=== PATIENT | female | born 1935 | race Caucasian/White ===

== ENCOUNTER 2016-05-19 10:57 | Emergency (ER) | payer MEDICARE ==
[~2016-05-19] VITALS: Ht 152.4 cm; Wt 61.4 kg
[~2016-05-19 10:57] MED LIST: ACTOS PLUS MET PO; ASPI81TA45 PO; CELE100C PO; FERR324T4 PO; ISOS40TA4 SL; LEVO50TA4 PO; LORT5TAB PO; LOSA25 PO; MAGN400T PO; METO25 PO; SIMV40 PO
[2016-05-19 11:02] VITALS: BP 137/75; PULSE 72; RESP 20; TEMP 97.7; O2SAT 95
[2016-05-19 12:29] LABS: AUTOMATED NEUTROPHIL # 3.8 TH/MM3 (1.8-7.7); BASOPHIL % 0.9 % (0.0-2.0); EOSINOPHIL # 0.1 TH/MM3 (0-0.4); HEMATOCRIT 34.9 % (35.0-46.0); HEMO FLAGS DIFF FINAL; LYMPH % 14.8 % (9.0-44.0); LYMPHOCYTE # 0.8 TH/MM3 (1.0-4.8); MEAN CELL VOLUME 94.3 FL (80.0-100.0); MEAN CORPUSCULAR HEMOGLOBIN 30.9 PG (27.0-34.0); MEAN CORPUSCULAR HGB CONC 32.7 % (32.0-36.0); MONO % 10.2 % (0.0-8.0); NEUT % 73.1 % (16.0-70.0); PLATELET COUNT 208 TH/MM3 (150-450); RED CELL DISTRIBUTION WIDTH 14.5 % (11.6-17.2); WHITE BLOOD COUNT 5.2 TH/MM3 (4.0-11.0)
[2016-05-19 12:35] LABS: BLOOD, URINE NEG (NEG); COMMENT (UR) CULTURE INDICATED; CULTURE IF INDICATED CULTURE INDICATED; GLUCOSE,URINE NEG (NEG); KETONE, URINE NEG (NEG); SQUAMOUS EPITHELIAL CELL URINE 2 /hpf (0-5); URINE COLOR YELLOW (YELLW/STRAW)
[2016-05-19 12:36] LABS: NITRITE,URINE POS (NEG)
[2016-05-19 12:48] LABS: ALT (GPT) 61 U/L (10-53); ANION GAP 9 MEQ/L (5-15); AST (GOT) 43 U/L (15-37); BLOOD UREA NITROGEN 17 MG/DL (7-18); CHLORIDE 106 MEQ/L (98-107); GLOMERULAR FILTRATION RATE 48 ML/MIN (>89); POTASSIUM 4.3 MEQ/L (3.5-5.1); SODIUM (NA) 138 MEQ/L (136-145)
[2016-05-19 12:50] LABS: ALKALINE PHOSPHATASE 98 U/L (45-117); TOTAL BILIRUBIN ADULT 0.4 MG/DL (0.2-1.0)
[2016-05-19] MEDS ORDERED: METO25TA3 PO ×2 (13:42→13:49)
[2016-05-19] MEDS ORDERED: MACR100C2 PO (13:42)
--- NOTE | 2016-05-19 13:43 | PD ---
HPI Chief Complaint: Complaint Time Seen by Provider: 13:42 Travel History International Travel<30 days: No Contact w/Intl Traveler<30days: No Traveled to known affect area: No History of Present Illness HPI 80-year-old female with a history of hypertension, GERD and recurrent urinary tract infections presents to the emergency department for evaluation of possible urinary tract infection. The patient states that for the past 5 days she's had burning with urination, urinary frequency and suprapubic pressure. States that she gets frequent urinary tract infection secondary to bladder prolapse and that these symptoms are typical of her urinary tract infections. States that she finished a 5 day course of Macrobid 6 days ago, had recently been on Cipro but was told by her doctor that her UTI was resistant to Cipro. She denies any fever, chills, nausea, vomiting, chest pain, shortness of breath , abdominal pain. The patient is here on vacation from [place] and returns home in 1 week. She is also requesting a refill of her metoprolol until she can get home to see her doctor. No other complaints. PFSH Past Medical History Bipolar Disorder: Yes (CERVICAL CANCER) Chest Pain: Yes Coronary Artery Disease: Yes Diabetes: Yes Patient Takes Glucophage: No Gastrointestinal Disorders: Yes (ONGOING BOWEL INFECTION TREATED EVERY OTHER MONTH) Tetanus Vaccination: < 5 Years ?: Not Past Surgical History Abdominal Surgery: Yes (obstruction repairs x3) Other Surgery: Yes (cervical cancer removal) Social History Alcohol Use: Yes (occ) Tobacco Use: No Substance Use: No Allergies-Medications (Allergen,Severity, Reaction): Coded Allergies: Codeine (Verified Allergy, Mild, Nausea/Vomiting, 05/19/16) Reported Meds & Prescriptions Reported Meds & Active Scripts Active Reported Levothyroxine (Levothyroxine Sodium) 75 Mcg Tab 75 Mcg PO DAILY Cilostazol 50 Mg Tab 50 Mg PO BID Prilosec (Omeprazole) 20 Mg Cap 20 Mg PO DAILY Isosorbide Dinitrate 20 Mg Tab 40 Mg PO DAILY Nitrofurantoin Monohydrate Macrocrystals (Nitrofurantoin Monoh/Nitrofur Macro) 100 Mg Cap 100 Mg PO DAILY Metoprolol Tartrate 25 Mg Tab 12.5 Mg PO BID Review of Systems Except as stated in HPI: all other systems reviewed are Neg Physical Exam Narrative GENERAL: Well-nourished and well-developed pleasant female patient in no acute distress. SKIN: Warm and dry. HEAD: Normocephalic and atraumatic. EYES: No injection, drainage, or hyphema noted. PERRLA. EOMI. ENT: No nasal drainage noted. Oropharynx is clear. NECK: Supple and the trachea is midline. CARDIOVASCULAR: Regular rate and rhythm. RESPIRATORY: Breath sounds are equal bilaterally with no accessory muscle use, wheezing, rhonchi, or crackles. GASTROINTESTINAL: Abdomen is soft, non-tender, and nondistended. MUSCULOSKELETAL: No obvious deformities, swelling, cyanosis, or ecchymosis is present throughout the upper and lower extremities. Patient has full range of motion without any signs of neurovascular compromise. NEUROLOGICAL: Awake, alert, and oriented. Normal speech and gait. Cranial nerves are grossly intact. Data Data Last Documented VS Vital Signs Date Time Temp Pulse Resp B/P Pulse Ox O2 Delivery O2 Flow Rate FiO2 05/19/16 13:53 71 20 135/78 98 05/19/16 11:02 97.7 Room Air Orders Electrocardiogram (05/19/16 11:21) Complete Blood Count With Diff (05/19/16 11:21) Comprehensive Metabolic Panel (05/19/16 11:21) Urinalysis - C+S If Indicated (05/19/16 11:21) Urine Culture (05/19/16 11:58) Labs Laboratory Tests Test 05/19/16 11:58 White Blood Count 5.2 TH/MM3 Red Blood Count 3.70 MIL/MM3 Hemoglobin 11.4 GM/DL Hematocrit 34.9 % Mean Corpuscular Volume 94.3 FL Mean Corpuscular Hemoglobin 30.9 PG Mean Corpuscular Hemoglobin 32.7 % Concent Red Cell Distribution Width 14.5 % Platelet Count 208 TH/MM3 Mean Platelet Volume 8.3 FL Neutrophils (%) (Auto) 73.1 % Lymphocytes (%) (Auto) 14.8 % Monocytes (%) (Auto) 10.2 % Eosinophils (%) (Auto) 1.0 % Basophils (%) (Auto) 0.9 % Neutrophils # (Auto) 3.8 TH/MM3 Lymphocytes # (Auto) 0.8 TH/MM3 Monocytes # (Auto) 0.5 TH/MM3 Eosinophils # (Auto) 0.1 TH/MM3 Basophils # (Auto) 0.0 TH/MM3 CBC Comment DIFF FINAL Differential Comment Urine Color YELLOW Urine Turbidity HAZY Urine pH 5.0 Urine Specific Hooper 1.010 Urine Protein NEG mg/dL Urine Glucose (UA) NEG mg/dL Urine Ketones NEG mg/dL Urine Occult Blood NEG Urine Nitrite POS Urine Bilirubin NEG Urine Urobilinogen LESS THAN 2.0 MG/DL Urine Leukocyte Esterase SMALL Urine WBC 13 /hpf Urine Squamous Epithelial 2 /hpf Cells Microscopic Urinalysis Comment CULTURE INDICATED Sodium Level 138 MEQ/L Potassium Level 4.3 MEQ/L Chloride Level 106 MEQ/L Carbon Dioxide Level 23.0 MEQ/L Anion Gap 9 MEQ/L Blood Urea Nitrogen 17 MG/DL Creatinine 1.09 MG/DL Estimat Glomerular Filtration 48 ML/MIN Rate Random Glucose 148 MG/DL Calcium Level 9.3 MG/DL Total Bilirubin 0.4 MG/DL Aspartate Amino Transf 43 U/L (AST/SGOT) Alanine Aminotransferase 61 U/L (ALT/SGPT) Alkaline Phosphatase 98 U/L Total Protein 7.2 GM/DL Albumin 3.6 GM/DL MDM Medical Decision Making Medical Screen Exam Complete: Yes Emergency Medical Condition: Yes Differential Diagnosis Urinary tract infection versus cystitis versus dysuria versus other Narrative Course 80-year-old female presents to the emergency department for evaluation of burning with urination. Patient is afebrile, vital signs are stable. Physical examination is essentially unremarkable. Labs were obtained per protocol. CBC shows mild anemia but otherwise unremarkable. CMP shows mild renal insufficiency, no prior for comparison. Urinalysis shows white blood cells, leukocyte Estrace and positive nitrites. Patient will be prescribed Macrobid and will be given a short refill of her metoprolol. She is to follow-up with her PCP next week in office. Patient verbalizes understanding and agreement with treatment plan. I discussed the case with my attending physician Dr. Concepcion who is aware of the patients history, physical examination findings, and treatment plan. Diagnosis Primary Impression: Urinary tract infection Qualified Code: N39.0 - Urinary tract infection without hematuria, site unspecified Patient Instructions: General Instructions, Urinary Tract Infection in Women ( ED) Additional Instructions: Take medication as prescribed with food and a full glass of water. Follow-up with your Primary Care Physician. Return to the ED for any acute worsening of symptoms. Med/Other Pt SpecificInfo: Prescription(s) given Disposition: 01 DISCHARGE HOME Condition: Stable Kelle Musab 6, 2017 13:43
[2016-05-19] MEDS ORDERED: CILO50TA PO (13:49)
[2016-05-19] MEDS ORDERED: ISOS20TA2 PO (13:49)
[2016-05-19] MEDS ORDERED: LEVO75TA3 PO (13:49)
[2016-05-19] MEDS ORDERED: PRIL20CA9 PO (13:49)
[2016-05-19] MEDS ORDERED: NITR100C4 PO (13:49)
[2016-05-19 13:53] VITALS: BP 135/78
--- NOTE | 2016-05-20 17:06 | EKG ---
Date Performed: 05/19/2016 Time Performed: 11:42:12 PTAGE: 80 years EKG: Sinus rhythm VOLTAGE CRITERIA FOR LVH NONSPECIFIC T-WAVE ABNORMALITY ABNORMAL ECG NO PREVIOUS TRACING DOCTOR: Ramón Diaz Interpretating Date/Time 05/20/2016 17:02:26
== END 2016-05-19 14:02 | disposition home or self-care (01) ==
LOC: NETRI 13:56
DX: N39.0 Urinary tract infection, site not specified (principal); I25.10 Atherosclerotic heart disease of native coronary artery without angina pectoris; E11.9 Type 2 diabetes mellitus without complications
CPT/HCPCS: 80053; 81001; 85025; 87077; 87086; 87186; 93005